=== PATIENT | male | born 1970 | race Caucasian/White ===

== ENCOUNTER 2018-10-07 13:01 | Inpatient (IN) | payer OTHER ==
[~2018-10-07] VITALS: Ht 182.9 cm; Wt 117.9 kg
[2018-10-07 13:38] LABS: BASOPHILS ABSOLUTE AUTO 0.03 K/mm3 (0.00-0.23); BASOPHILS PERCENT AUTO 0 % (0-2); EOSINOPHILS ABSOLUTE AUTO 0.02 K/mm3 (0.00-0.68); EOSINOPHILS PERCENT AUTO 0 % (0-6); Hematocrit 45.5 % (37.0-53.0); Hemoglobin 15.8 g/dL (13.5-17.5); IMMATURE GRAN ABSOLUTE AUTO 0.03 K/mm3 (0.00-0.10); IMMATURE GRAN PERCENT AUTO 0 % (0-1); LYMPHOCYTES ABSOLUTE AUTO 1.37 K/mm3 (0.84-5.20); LYMPHOCYTES PERCENT AUTO 17 % (21-46); MONOCYTES ABSOLUTE AUTO 0.46 K/mm3 (0.16-1.47); MONOCYTES PERCENT AUTO 6 % (4-13); Mean Corpuscular HGB 29.8 pg (26.0-34.0); Mean Corpuscular HGB Conc 34.7 g/dL (31.5-36.5); Mean Corpuscular Volume 86 fL (80-100); Mean Platelet Volume 8.7 fL (9.1-12.4); NEUTROPHILS ABSOLUTE AUTO 6.09 K/mm3 (1.96-9.15); NEUTROPHILS PERCENT AUTO 76 % (41-73); Platelet Count 212 K/mm3 (150-400); RDW Coefficient Variation 12.5 % (11.7-14.2); RDW Standard Deviation 38.8 fL (35.1-46.3)
[2018-10-07 14:07] LABS: Source, Urine Clean Catch
[2018-10-07 14:10] LABS: Alanine Aminotransfer (ALT/SGP 41 U/L (12-78); Alk Phos 141 U/L (50-136); Anion Gap 14 mmol/L (6-16); Aspartate Aminotrans (AST/SGOT 75 U/L (12-37); Bilirubin, Total 0.6 mg/dL (0.1-1.0); Blood Urea Nitrogen 10 mg/dL (8-24); Bun/Creatinine Ratio 12.7 (12.0-20.0); CO2, Blood 23 mmol/L (21-32); Calcium, Blood 8.3 mg/dL (8.5-10.1); Chloride, Blood 97 mmol/L (98-108); Creatinine, Blood 0.79 mg/dL (0.60-1.20); Ethanol (Alcohol), Blood, Med 293 mg/dL; Globulin, Blood 3.9 g/dL (2.2-4.0); Glomerular Filtration Rate >60 (60-); Glucose, Blood 136 mg/dL (70-99); Potassium, Blood 3.7 mmol/L (3.5-5.5); Salicylate <1.7 mg/dL (2.8-20.0); Sodium, Blood 134 mmol/L (136-145); Total Protein, Blood 7.9 g/dL (6.4-8.2)
[2018-10-07 14:14] LABS: Bilirubin, Urine Neg (Neg); Blood, Urine Neg (Neg); Glucose Qualitative, Urine Neg (Neg); Ketones, Urine 1+ (Neg); Leukocyte Esterase, Urine Neg (Neg); Nitrite, Urine Neg (Neg); Protein, Urine Neg (Neg); Urobilinogen, Urine NORM (Normal)
[2018-10-07 14:15] LABS: Thyroid Stimulating Hormone 0.747 uIU/mL (0.360-4.800)
[2018-10-07 14:17] LABS: Appearance, Urine Clear (Clear); Color, Urine Yellow (P-Yellow)
[2018-10-07 14:27] LABS: Acetaminophen, Random <2.0 ug/mL (10.0-30.0)
[2018-10-07 14:31] LABS: U Amphetamine Screen Not Detected; U Barbituate Screen Not Detected; U Benzodiazapine Screen Not Detected; U Buprenorphine Screen Not Detected; U Cannabinoids Screen Not Detected; U Cocaine Screen Not Detected; U Methadone Screen Not Detected; U Methamphetamine Screen Not Detected; U Opiates Screen Not Detected; U Oxycodone Screen Not Detected; U Phencyclidine Screen Not Detected; U Propoxyphene Screen Not Detected
[2018-10-07] MEDS ORDERED: GABA300 PO (15:38)
[2018-10-07] MEDS ORDERED: TRAZ50 (15:39)
[2018-10-07] MEDS ORDERED: QUET25 (15:39)
[2018-10-07] MEDS ORDERED: **INCOMPLETE MED REC (16:07)
[2018-10-07] MEDS ORDERED: Fluoxetine HCl20 M1 PO (16:56)
[2018-10-07] MEDS ORDERED: PALIPERIDONE ER6 MG PO (16:57)
[2018-10-07] MEDS ORDERED: GABA400 PO (18:41)
[2018-10-07] MEDS ORDERED: TRAZ150T57 PO (18:44)
--- NOTE | 2018-10-08 03:36 | NUR ---
SHIFT SUMMARY PT ADMITTED FOR SI. FULL CODE. REGULAR DIET. LOVENOX FOR DVT PROPHYLAXIS. SIEZURE PRECUATIONS IN PLACE. RAMILA RISK SUICIDE. ASPIRATION PRECAUTIONS. 20G IV TO R AC. THE PT PRESENTED TO THE ED WITH SI. THE PT STATED HE WANTED TO CUT HIS WRIST WITH A KNIFE. THE PT REPORTED A SUICIDE ATTEMPT 3 WEEKS AGO WITH SLEEPING PILLS AND GABAPENTIN. THE PT ALSO REPORTED HEARING VOICES WHITH A HISTORY OF SCHIZOPHRENIA. THE PT IS CURRENTLY ON A 2 MD HOLD AND FACESHEET HAS BEEN SENT TO THE ED FOR DR. PHILLIPS TO CONSULT. THE PT IS NOTED TO HAVE ALCOHOL INTOXICATION WITH ETHYL ALCOHOL OF 293. CIWA SCORES HAVE BEEN BETWEEN 3 AND FIVE, PT NOTED TO HAVE SOME TREMOR AND WHEN ASKED IS UNABLE TO SAY THE CORRECT YEAR OR DATE. PER REPORT THE PT LIVED IN [place] UNTIL ABOUT A WEEK AGO. THE PT WAS INCONTINENT AND COVERED IN URINE UPON ARRIVAL TO MEDICAL FLOOR FROM THE ED. THE PT WAS CONTIENT FOR US X1 SO FAR BUT THE PT REMAINS VERY SLOW TO RESPOND AND VERY UNSTEADY ON HIS FEET. HE HAS BEEN A 2 PERSON ASSIST DUE TO DIFFICULTY WITH BALANCE. THE PT HAS BEEN SLEEPING MOST OF THE NIGHT SINCE ADMISSION AND VERY DIFFICULT TO OBTAIN HISTORY AND IT IS UNCLEAR HOW ACCURATE HISTORY WAS BUT NO FAMILY TO ASSIST WITH PROVIDING HISTORY. NO APPARENT SIGNS OF ACUTE DISTRESS. FREQUENT VISUAL CHECKS. WILL CONTINUE TO MONITOR.
--- NOTE | 2018-10-08 14:33 | NUR ---
PCU TRAVEL RN CALLED AND REPORTED THAT THE PT'S HR WAS ELEVATED IN THE 120'S. PT REPORTS HE WAS OUT OF BED AT THE TIME. HIS HR STARTED TRENDING DOWNWARDS THE PT WAS GETTING BACK IN BED. BED ALARM TURNED ON.
--- NOTE | 2018-10-08 16:25 | NUR ---
PALIPERIDONE NOT AVAILABLE THROUGH PHARMACY AND PT DOES NOT HAVE. JUDICIAL LAW CLERK CYNTHIA SPOKE WITH RAJESH PATTON WHO HAS CHANGED TO RISPERIDOL 3MG PO BID, SHE REPORTS THIS MAY MAKE PT SLEEPY. BARON MARIE ALSO SPOKE WITH RAJESH PATTON AND DR RESENDEZ REGARDING INVOLUNTARY HOLD, RAJESH PATTON REPORTS PT DOES NOT NEED INVOLUNTARY HOLD AND PT IS AGREEABLE FOR INPATIENT PSYCH.
--- NOTE | 2018-10-08 16:48 | NUR ---
DR RESENDEZ IN TO SEE PT.
--- NOTE | 2018-10-08 17:33 | NUR ---
THIS PT STARTED HIS DAY ON SUICIDE PRECAUTIONS AND WITH A SITTER AT THE BEDSIDE. HE SHOWERED TODAY. HE IS A SBA TO THE RESTROOM. VIVIANA PATTON CONSULTED THE PATIENT WHICH RESULTED IN HER AND DR. RESENDEZ DC'D THE HIGH RISK SUICIDE AND INVOLUNTARY HOLD. THE PT IS ALERT AND ORIENTED AND COOPERATIVE WITH CARE. HE HAD TWO FRIENDS VISIT HIM TODAY. PT STILL IN PAPER SCRUBS. TELEMETRY DC'D. NO SITTER AT BEDSIDE.
--- NOTE | 2018-10-09 04:28 | NUR ---
SHIFT SUMMARY PT SLEPT WELL DURING THE NIGHT AFTER RECEIVING PO EVENING MEDICATIONS. CIWA'S 0 T/O NIGHT. NO CHANGES NOTED, WILL CONTINUE TO MONITOR.
--- NOTE | 2018-10-09 17:33 | NUR ---
THIS PT HAS BEEN ALERT AND ORIENTED AND COOPERATIVE WITH CARE ALL DAY. HE SLEPT MOST OF THE DAY BETWEEN MEALS. HE SHOWERED AT 1740. HE SPOKE WITH DR. LINARES AND CARE MANAGEMENT ABOUT HIS DISCHARGE. HE IS PLEASANT AND LETS HIS NEEDS BE KNOWN. HIS COUSIN HAS BEEN CONTACTED AND ASKED TO ALFREDO THE PT HIS WALLET AND PHONE. NO ACUTE CHANGES. WILL CONTINUE TO MONITOR.
--- NOTE | 2018-10-10 05:21 | NUR ---
SHIFT SUMMARY PT SLEPT WELL T/O THE NIGHT. PT WOKE UP THIS AM WITH A COUGH. KENNY BALDERAS, WILL CONTINUE TO MONITOR.
--- NOTE | 2018-10-10 11:26 | NUR ---
NOTIFIED DR. LINARES PT C/O COUGH AND BACK PAIN. DR. LINARES SAID TO ORDER 650 MG PO TYLENOL Q6H PRN AND 100MG PO TESSALON PEARLS Q6H PRN. NO OTHER NEW ORDERS AT THIS TIME.
[2018-10-10] MEDS ORDERED: GABA600 (17:11)
[2018-10-10] MEDS ORDERED: RISP2 (17:15)
[2018-10-10] MEDS ORDERED: FOLI1 (17:16)
[2018-10-10] MEDS ORDERED: VITAMIN B-1100 MG (17:17)
--- NOTE | 2018-10-10 18:43 | NUR ---
REPORT CALLED TO YOEL AT [facility]. PT D/C WITH SECURE TRANSPORT AT 181 VIA WHEELCHAIR.
== END 2018-10-10 18:16 | DRG 880 ==
LOC: ER 13:01 → MEDS 17:37
PROVIDERS: Physician Assistant; ADMIT Family Medicine
DX: R45.851 Suicidal ideations (principal); F32.9 Major depressive disorder, single episode, unspecified; G62.9 Polyneuropathy, unspecified; F20.9 Schizophrenia, unspecified; F10.10 Alcohol abuse, uncomplicated; F17.220 Nicotine dependence, chewing tobacco, uncomplicated; Z79.899 Other long term (current) drug therapy
CPT/HCPCS: 80053; 81003; 84443; 85025; 96365; 96366; 96375; 99285-25; G0480; J1650; J2060; J2405; J3411; J3475; J7042; Q3014

== ENCOUNTER 2018-11-04 09:06 | Emergency (ER) | payer OTHER ==
[~2018-11-04] VITALS: Ht 182.9 cm; Wt 120.2 kg
[~2018-11-04 09:06] MED LIST: **INCOMPLETE MED REC; FOLI1; Fluoxetine HCl20 M1 PO; GABA300 PO; GABA400 PO; GABA600; PALIPERIDONE ER6 MG PO; QUET25; RISP2; TRAZ150T57 PO; TRAZ50; VITAMIN B-1100 MG
== END 2018-11-04 10:44 | disposition home or self-care (01) ==
LOC: ER 09:06
DX: F10.239 Alcohol dependence with withdrawal, unspecified (principal); F20.9 Schizophrenia, unspecified; F17.220 Nicotine dependence, chewing tobacco, uncomplicated; Z79.899 Other long term (current) drug therapy
CPT/HCPCS: 99284

== ENCOUNTER → 2018-12-29 | Outpatient (CLI) | payer OTHER ==
[2018-12-29 14:46] LABS: U Amphetamine Screen Not Detected; U Barbituate Screen Not Detected; U Benzodiazapine Screen DETECTED; U Buprenorphine Screen Not Detected; U Cannabinoids Screen Not Detected; U Cocaine Screen Not Detected; U Methadone Screen Not Detected; U Methamphetamine Screen Not Detected; U Opiates Screen Not Detected; U Oxycodone Screen Not Detected; U Phencyclidine Screen Not Detected; U Propoxyphene Screen Not Detected
== END | disposition home or self-care (01) ==
LOC: LAB SHORT 13:59 → LAB 13:59
PROVIDERS: Psychiatry & Neurology Psychiatry
DX: Z51.81 Encounter for therapeutic drug level monitoring (principal); Z79.899 Other long term (current) drug therapy

== ENCOUNTER 2019-02-14 08:20 | Emergency (ER) | payer OTHER ==
[~2019-02-14] VITALS: Ht 182.9 cm; Wt 131.5 kg
[2019-02-14 09:04] LABS: BASOPHILS ABSOLUTE AUTO 0.04 K/mm3 (0.00-0.23); BASOPHILS PERCENT AUTO 0 % (0-2); EOSINOPHILS ABSOLUTE AUTO 0.22 K/mm3 (0.00-0.68); EOSINOPHILS PERCENT AUTO 2 % (0-6); Hematocrit 38.4 % (37.0-53.0); Hemoglobin 12.6 g/dL (13.5-17.5); IMMATURE GRAN ABSOLUTE AUTO 0.05 K/mm3 (0.00-0.10); IMMATURE GRAN PERCENT AUTO 1 % (0-1); LYMPHOCYTES ABSOLUTE AUTO 1.26 K/mm3 (0.84-5.20); LYMPHOCYTES PERCENT AUTO 12 % (21-46); MONOCYTES ABSOLUTE AUTO 0.92 K/mm3 (0.16-1.47); MONOCYTES PERCENT AUTO 9 % (4-13); Mean Corpuscular HGB 29.5 pg (26.0-34.0); Mean Corpuscular HGB Conc 32.8 g/dL (31.5-36.5); Mean Corpuscular Volume 90 fL (80-100); Mean Platelet Volume 9.5 fL (9.1-12.4); NEUTROPHILS PERCENT AUTO 76 % (41-73); Platelet Count 199 K/mm3 (150-400); RDW Coefficient Variation 12.6 % (11.7-14.2); RDW Standard Deviation 41.4 fL (35.1-46.3); Red Blood Cell Count 4.27 M/mm3 (4.30-5.90); White Blood Cell Count 10.49 K/mm3 (4.00-11.30)
[2019-02-14 09:21] LABS: Anion Gap 4 mmol/L (6-16); Blood Urea Nitrogen 15 mg/dL (8-24); Bun/Creatinine Ratio 18.7 (12.0-20.0); CO2, Blood 28 mmol/L (21-32); Calcium, Blood 8.3 mg/dL (8.5-10.1); Chloride, Blood 107 mmol/L (98-108); Glomerular Filtration Rate >60 (60-); Glucose, Blood 103 mg/dL (70-99); Potassium, Blood 4.1 mmol/L (3.5-5.5); Sodium, Blood 139 mmol/L (136-145)
[2019-02-14] MEDS ORDERED: Bactrim Ds Tab1 EACH PO (13:44)
[2019-02-14] MEDS ORDERED: Norco 5-325 Ta1 EACH PO (13:44)
== END 2019-02-14 14:05 | disposition short-term general hospital (02) ==
LOC: ER 08:20
PROVIDERS: Emergency Medicine
DX: L02.413 Cutaneous abscess of right upper limb (principal); L03.113 Cellulitis of right upper limb; F32.9 Major depressive disorder, single episode, unspecified; F20.9 Schizophrenia, unspecified; F17.220 Nicotine dependence, chewing tobacco, uncomplicated; Z79.899 Other long term (current) drug therapy
CPT/HCPCS: 10060; 36415; 76882; 80048; 85025; 87070; 87075; 87077; 87147; 87186; 87205; 96365-59; 99284-25; J0690

== ENCOUNTER 2019-04-02 13:28 | Emergency (ER) | payer OTHER ==
[~2019-04-02] VITALS: Ht 185.4 cm; Wt 127.0 kg
[~2019-04-02 13:28] MED LIST changes: +Bactrim Ds Tab1 EACH PO; +Norco 5-325 Ta1 EACH PO
[2019-04-02] MEDS ORDERED: ZYRTEC10 M1 PO (13:52)
[2019-04-02] MEDS ORDERED: DICL75ER PO (13:53)
[2019-04-02] MEDS ORDERED: HALO5 PO (13:53)
[2019-04-02] MEDS ORDERED: LATUDA80 MG PO (13:54)
[2019-04-02] MEDS ORDERED: Naltrexone HCl50 MG PO (13:54)
[2019-04-02] MEDS ORDERED: LAMO100 PO (13:54)
[2019-04-02] MEDS ORDERED: GABA800 PO (13:55)
[2019-04-02] MEDS ORDERED: Ativan0.5 MG PO (13:56)
[2019-04-02] MEDS ORDERED: Prozac20 MG (13:56)
[2019-04-02] MEDS ORDERED: OLAN2.5 PO (13:56)
[2019-04-02 14:19] LABS: BASOPHILS ABSOLUTE AUTO 0.05 K/mm3 (0.00-0.23); BASOPHILS PERCENT AUTO 1 % (0-2); EOSINOPHILS ABSOLUTE AUTO 0.08 K/mm3 (0.00-0.68); EOSINOPHILS PERCENT AUTO 1 % (0-6); Hematocrit 44.2 % (37.0-53.0); IMMATURE GRAN ABSOLUTE AUTO 0.02 K/mm3 (0.00-0.10); IMMATURE GRAN PERCENT AUTO 0 % (0-1); LYMPHOCYTES ABSOLUTE AUTO 2.19 K/mm3 (0.84-5.20); LYMPHOCYTES PERCENT AUTO 26 % (21-46); MONOCYTES ABSOLUTE AUTO 0.53 K/mm3 (0.16-1.47); MONOCYTES PERCENT AUTO 6 % (4-13); Mean Corpuscular HGB 29.8 pg (26.0-34.0); Mean Corpuscular HGB Conc 33.9 g/dL (31.5-36.5); Mean Corpuscular Volume 88 fL (80-100); Mean Platelet Volume 9.2 fL (9.1-12.4); NEUTROPHILS ABSOLUTE AUTO 5.45 K/mm3 (1.96-9.15); NEUTROPHILS PERCENT AUTO 66 % (41-73); Platelet Count 290 K/mm3 (150-400); RDW Coefficient Variation 12.3 % (11.7-14.2); RDW Standard Deviation 39.7 fL (35.1-46.3); Red Blood Cell Count 5.03 M/mm3 (4.30-5.90); White Blood Cell Count 8.32 K/mm3 (4.00-11.30)
[2019-04-02 14:30] LABS: Source, Urine Clean Catch
[2019-04-02 14:34] LABS: Alanine Aminotransfer (ALT/SGP 34 U/L (12-78); Alk Phos 143 U/L (50-136); Anion Gap 12 mmol/L (6-16); Aspartate Aminotrans (AST/SGOT 35 U/L (12-37); Bilirubin, Total 0.5 mg/dL (0.1-1.0); Blood Urea Nitrogen 15 mg/dL (8-24); CO2, Blood 23 mmol/L (21-32); Calcium, Blood 8.7 mg/dL (8.5-10.1); Chloride, Blood 99 mmol/L (98-108); Creatinine, Blood 0.72 mg/dL (0.60-1.20); Globulin, Blood 4.1 g/dL (2.2-4.0); Glomerular Filtration Rate >60 (60-); Glucose, Blood 142 mg/dL (70-99); Potassium, Blood 3.7 mmol/L (3.5-5.5); Sodium, Blood 134 mmol/L (136-145); Total Protein, Blood 8.1 g/dL (6.4-8.2)
[2019-04-02 14:34] LABS: Bilirubin, Urine Neg (Neg); Blood, Urine Neg (Neg); Glucose Qualitative, Urine Neg (Neg); Ketones, Urine Neg (Neg); Leukocyte Esterase, Urine Neg (Neg); Nitrite, Urine Neg (Neg); Protein, Urine Neg (Neg); Urobilinogen, Urine NORM (Normal)
[2019-04-02 14:36] LABS: Appearance, Urine Clear (Clear); Color, Urine Yellow (P-Yellow)
[2019-04-02 14:39] LABS: Ethanol (Alcohol), Blood, Med 367 mg/dL
[2019-04-02 14:48] LABS: U Amphetamine Screen Not Detected; U Barbituate Screen Not Detected; U Benzodiazapine Screen Not Detected; U Buprenorphine Screen Not Detected; U Cannabinoids Screen Not Detected; U Cocaine Screen Not Detected; U Methadone Screen Not Detected; U Methamphetamine Screen Not Detected; U Opiates Screen Not Detected; U Oxycodone Screen Not Detected; U Phencyclidine Screen Not Detected; U Propoxyphene Screen Not Detected
[2019-04-02] MEDS ORDERED: LORA1 PO (19:52)
== END 2019-04-02 20:19 | disposition home or self-care (01) ==
LOC: ER 13:28
PROVIDERS: Emergency Medicine
DX: F10.20 Alcohol dependence, uncomplicated (principal); F17.220 Nicotine dependence, chewing tobacco, uncomplicated; G92 Toxic encephalopathy; F20.9 Schizophrenia, unspecified; F32.9 Major depressive disorder, single episode, unspecified; Z79.899 Other long term (current) drug therapy
CPT/HCPCS: 51701; 71045; 80053; 81003; 82947; 85025; 93005; 93010; 99284-25; G0480

== ENCOUNTER 2019-09-23 22:45 | Emergency (ER) | payer OTHER ==
[~2019-09-23] VITALS: Ht 182.9 cm; Wt 133.8 kg
[~2019-09-23 22:45] MED LIST changes: +Ativan0.5 MG PO; +DICL75ER PO; +GABA800 PO; +HALO5 PO; +LAMO100 PO; +LATUDA80 MG PO; +LORA1 PO; +Naltrexone HCl50 MG PO; +OLAN2.5 PO; +Prozac20 MG; +ZYRTEC10 M1 PO
[2019-09-23] MEDS ORDERED: Atarax10 MG PO (22:57)
[2019-09-23 23:21] LABS: BASOPHILS ABSOLUTE AUTO 0.06 K/mm3 (0.00-0.23); BASOPHILS PERCENT AUTO 1 % (0-2); EOSINOPHILS PERCENT AUTO 2 % (0-6); Hematocrit 42.5 % (37.0-53.0); Hemoglobin 14.3 g/dL (13.5-17.5); IMMATURE GRAN ABSOLUTE AUTO 0.04 K/mm3 (0.00-0.10); IMMATURE GRAN PERCENT AUTO 0 % (0-1); LYMPHOCYTES ABSOLUTE AUTO 1.47 K/mm3 (0.84-5.20); LYMPHOCYTES PERCENT AUTO 15 % (21-46); MONOCYTES PERCENT AUTO 6 % (4-13); Mean Corpuscular HGB 29.2 pg (26.0-34.0); Mean Corpuscular HGB Conc 33.6 g/dL (31.5-36.5); Mean Corpuscular Volume 87 fL (80-100); Mean Platelet Volume 9.5 fL (9.1-12.4); NEUTROPHILS ABSOLUTE AUTO 7.64 K/mm3 (1.96-9.15); NEUTROPHILS PERCENT AUTO 76 % (41-73); Platelet Count 257 K/mm3 (150-400); RDW Standard Deviation 38.5 fL (35.1-46.3); White Blood Cell Count 10.01 K/mm3 (4.00-11.30)
[2019-09-23 23:41] LABS: Alanine Aminotransfer (ALT/SGP 30 U/L (12-78); Albumin, Blood 3.9 g/dL (3.4-5.0); Alk Phos 132 U/L (50-136); Anion Gap 6 mmol/L (6-16); Aspartate Aminotrans (AST/SGOT 18 U/L (12-37); Bilirubin, Total 0.3 mg/dL (0.1-1.0); Blood Urea Nitrogen 22 mg/dL (8-24); CO2, Blood 29 mmol/L (21-32); Calcium, Blood 8.9 mg/dL (8.5-10.1); Chloride, Blood 104 mmol/L (98-108); Creatinine, Blood 0.96 mg/dL (0.60-1.20); Globulin, Blood 3.9 g/dL (2.2-4.0); Glomerular Filtration Rate >60 (60-); Glucose, Blood 128 mg/dL (70-99); Potassium, Blood 4.2 mmol/L (3.5-5.5); Sodium, Blood 139 mmol/L (136-145); Total Protein, Blood 7.8 g/dL (6.4-8.2); Troponin I <0.015 ng/mL (0.000-0.040)
== END 2019-09-24 01:20 | disposition home or self-care (01) ==
LOC: ER 22:45
PROVIDERS: Emergency Medicine
DX: R55 Syncope and collapse (principal); F17.219 Nicotine dependence, cigarettes, with unspecified nicotine-induced disorders; W19.XXXA Unspecified fall, initial encounter
CPT/HCPCS: 36415; 70450; 71046; 80053; 84484; 85025; 93005; 93010; 96374; 99285-25; J1885